=== PATIENT | male | born 1980 | race Caucasian/White ===

== ENCOUNTER 2021-11-18 14:30 | Emergency (ER) | payer OTHER ==
[~2021-11-18] VITALS: Ht 182.9 cm; Wt 72.7 kg
[2021-11-18 15:22] VITALS: BP 133/78
== END 2021-11-18 15:24 | disposition home or self-care (01) ==
LOC: EMS 14:32
DX: M54.12 Radiculopathy, cervical region (principal)
CPT/HCPCS: 99283; Z7502